=== PATIENT | female | born 1970 | race Caucasian/White ===

== ENCOUNTER 2020-07-02 12:40 | Outpatient (REF) | payer MEDICAID, SELFPAY ==
--- NOTE | 2020-07-02 13:43 | MHC.AU.P13 ---
Hearing Aid Evaluation- Right Ear Date of Visit: 07/02/2020 Description of Hearing: Right Ear - Moderate sensorineural hearing loss at 250-1000 Hz, rising to normal hearing thresholds at 8534-8442 Hz with 96% speech understanding at a listening level of 65 dB HL Left Ear - Normal hearing thresholds through all frequencies with the exception of a mild loss at 6000 Hz. Speech discrimination is 100% at a level of 55 dB HL. Summary: Discussed appropriate styles of hearing aids for the right ear low frequency hearing loss. 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 Also discussed amplified stethoscopes and provided information about the i[employer] stethoscope. Hearing Instrument Selection: Right Ear: Medicaid Business Analyst: [place] Model: iFlipdo M 50-312 Battery Size: 312 Color: [place] Recommendations: Recommendations: Fitting will be scheduled when all materials have arrived. A hearing instrument fitting was scheduled. Recommendations (Other): Hearing Aid Fitting scheduled for 07/16/2020 Diagnosis Code(s): Primary Diagnosis: H90.41 SNHL Unilateral Right Ear, W/Unrestricted Contralateral Hearing Secondary Diagnosis: H93.11 Tinnitus, Right Ear Services Performed: Hearing Aid Evaluation and Earmold: Hearing Aid Evaluation- Monaural Signature: Provider: Anish Guevara, DEMARCUS-A
== END 2020-07-02 12:41 | disposition home or self-care (01) ==
LOC: HO.HAP 12:40
PROVIDERS: PCP Internal Medicine; Referring Provider Internal Medicine; Visit Provider Internal Medicine
DX: Z46.1 Encounter for fitting and adjustment of hearing aid (principal)
CPT/HCPCS: 92590; V5275

== ENCOUNTER 2020-07-16 11:31 | Outpatient (REF) | payer MEDICAID, SELFPAY | END 2020-07-16 11:32 | disposition home or self-care (01) | LOC: HO.HAP 11:31 | PROVIDERS: PCP Internal Medicine; Referring Provider Internal Medicine; Visit Provider Internal Medicine | DX: Z46.1 Encounter for fitting and adjustment of hearing aid (principal); H90.41 Sensorineural hearing loss, unilateral, right ear, with unrestricted hearing on the contralateral side; H93.11 Tinnitus, right ear | CPT/HCPCS: 92594; V5011; V5020; V5241; V5255; V5266 ==

== ENCOUNTER 2020-10-13 09:55 | Outpatient (REF) | payer MEDICAID, SELFPAY | END 2020-10-13 09:56 | disposition home or self-care (01) | LOC: HO.HAP 09:55 | PROVIDERS: Visit Provider Internal Medicine | DX: Z46.1 Encounter for fitting and adjustment of hearing aid (principal) | CPT/HCPCS: V5266 ==

== ENCOUNTER 2021-02-16 10:07 | Outpatient (REF) | payer MEDICAID, SELFPAY | END 2021-02-16 10:08 | disposition home or self-care (01) | LOC: HO.HAP 10:07 | PROVIDERS: Visit Provider Internal Medicine | DX: Z46.1 Encounter for fitting and adjustment of hearing aid (principal); H90.41 Sensorineural hearing loss, unilateral, right ear, with unrestricted hearing on the contralateral side; H93.11 Tinnitus, right ear | CPT/HCPCS: V5266 ==

== ENCOUNTER 2021-06-02 13:56 | Outpatient (REF) | payer MEDICAID, SELFPAY | END 2021-06-02 13:57 | disposition home or self-care (01) | LOC: HO.HAP 13:56 | PROVIDERS: Visit Provider Internal Medicine | DX: Z46.1 Encounter for fitting and adjustment of hearing aid (principal); H90.41 Sensorineural hearing loss, unilateral, right ear, with unrestricted hearing on the contralateral side; H93.11 Tinnitus, right ear | CPT/HCPCS: V5266 ==

== ENCOUNTER 2021-08-08 10:36 | Outpatient (REF) | payer MEDICAID, SELFPAY ==
--- NOTE | 2021-08-08 11:25 | MHC.AU.P13 ---
Hearing Instrument Problem Date of Visit: 08/08/21 Right Ear: Optical Glass Inspector: Phonak Model: Virto M 50-312 Serial Number: [id number] Repair Warranty: 08/11/2023 Service Plan: Service and L&D Battery Size: 312 Color: [place] Type of Wax Guard: CERUSTOP Dispensed By: [facility] Follow-Up Summary: Right hearing aid dropped off - not working. Sent to [employer] for in warranty repair. Recommendations: Recommendations: Patient will be contacted when materials have arrived. Diagnosis Code(s): Primary Diagnosis: H90.41 SNHL Unilateral Right Ear, W/Unrestricted Contralateral Hearing Signature: Provider: EDUARDO Henry
== END 2021-08-08 10:37 | disposition home or self-care (01) ==
LOC: HO.HAP 10:36
PROVIDERS: Visit Provider Internal Medicine
DX: Z13.89 Encounter for screening for other disorder (principal)

== ENCOUNTER 2021-08-17 13:53 | Outpatient (REF) | payer MEDICAID, SELFPAY | END 2021-08-17 13:54 | disposition home or self-care (01) | LOC: HO.HAP 13:53 | PROVIDERS: Visit Provider Internal Medicine | DX: Z13.89 Encounter for screening for other disorder (principal) ==

== ENCOUNTER 2021-10-12 10:05 | Outpatient (REF) | payer MEDICAID, SELFPAY | END 2021-10-12 10:06 | disposition home or self-care (01) | LOC: HO.HAP 10:05 | PROVIDERS: Visit Provider Internal Medicine | DX: Z46.1 Encounter for fitting and adjustment of hearing aid (principal) | CPT/HCPCS: V5266 ==

== ENCOUNTER → 2022-05-12 07:56 | Outpatient (BNVA) | payer MEDICAID, SELFPAY | PROVIDERS: PCP Internal Medicine; Visit Provider Nurse Practitioner Family | DX: R06.83 Snoring (principal); R40.0 Somnolence; G47.26 Circadian rhythm sleep disorder, shift work type; F41.9 Anxiety disorder, unspecified | CPT/HCPCS: 99202 ==

== ENCOUNTER → 2022-05-29 10:49 | Outpatient (REF) | payer MEDICAID, SELFPAY | LOC: HO.SL 10:49 | PROVIDERS: PCP Internal Medicine; Visit Provider Nurse Practitioner Family | DX: R40.0 Somnolence (principal); R06.83 Snoring | CPT/HCPCS: 95806 ==

== ENCOUNTER 2022-08-07 11:33 | Outpatient (REF) | payer MEDICAID, SELFPAY | END 2022-08-07 11:34 | disposition home or self-care (01) | LOC: HO.HAP 11:33 | PROVIDERS: Visit Provider Internal Medicine | DX: Z46.1 Encounter for fitting and adjustment of hearing aid (principal); H90.41 Sensorineural hearing loss, unilateral, right ear, with unrestricted hearing on the contralateral side | CPT/HCPCS: V5266 ==

== ENCOUNTER 2023-02-02 10:10 | Outpatient (REF) | payer MEDICAID, SELFPAY | END 2023-02-02 10:11 | disposition home or self-care (01) | LOC: HO.HAP 10:10 | PROVIDERS: Visit Provider Internal Medicine | DX: Z46.1 Encounter for fitting and adjustment of hearing aid (principal); H90.41 Sensorineural hearing loss, unilateral, right ear, with unrestricted hearing on the contralateral side | CPT/HCPCS: V5266 ==